=== PATIENT | male | born 1950 | race Hispanic/Latino ===

== ENCOUNTER 2017-02-05 10:32 | Outpatient (CLI) | payer OTHER ==
--- NOTE | 2017-02-05 10:55 | XRay Report ---
Bilateral knee: History: Knee pain. Findings: There is narrowing noted of the medial compartment and patellofemoral compartment right and left knee joint. Sclerotic articular surfaces with peripheral osteophytes suggesting degenerative changes. Mild degenerative changes of the lateral compartment. No fracture. No soft tissue calcification. 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
== END 2017-02-05 10:33 | disposition home or self-care (01) ==
LOC: SPVIMAG 10:32
PROVIDERS: ATTEND Orthopaedic Surgery
DX: M17.0 Bilateral primary osteoarthritis of knee (principal)